=== PATIENT | female | born 1985 | race Caucasian/White ===

== ENCOUNTER 2017-11-07 11:03 | Inpatient (IN) | payer SELFPAY ==
[2017-11-07] MEDS: LACTATED RINGER'S 1,000 ML IV ×3 (11:43→23:44)
[2017-11-07] MEDS: BETAMET NA PHOS/AC(6 MG/ML) 5ML INJ IM (11:47)
[2017-11-07] MEDS: TERBUTALINE 1 MG/ML INJ SC ×2 (11:47→19:52)
[2017-11-07 12:04] LABS: ADD MAN DIFF? NO
[2017-11-07 12:05] LABS: WHITE BLOOD COUNT 7.8 10^3/ul (4.8-10.8)
[2017-11-07 12:05] LABS: BASOPHILS % 0.4 % (0.0-2.0); EOSINOPHILS # 0.1 10^3/ul (0.0-0.5); EOSINOPHILS % 1.2 % (0.0-7.0); HEMATOCRIT 33.5 % (37.0-47.0); HEMOGLOBIN 11.5 g/dl (12.0-16.0); LYMPHOCYTES # 1.1 10^3/ul (0.8-2.9); LYMPHOCYTES % 14.4 % (15.0-51.0); MEAN CORPUSCULAR HEMOGLOBIN 32.8 pg (29.0-33.0); MEAN CORPUSCULAR HGB CONC 34.3 g/dl (32.0-37.0); MEAN CORPUSCULAR VOLUME 95.4 fl (82.0-101.0); MEAN PLATELET VOLUME 9.1 fl (7.4-10.4); MONOCYTE # 0.7 10^3/ul (0.3-0.9); MONOCYTES % 8.9 % (0.0-11.0); NEUTROPHIL # 5.8 10^3/ul (1.6-7.5); NEUTROPHILS % 73.8 % (39.0-77.0); PLATELET COUNT 227 10^3/UL (140-415); RED BLOOD COUNT 3.51 10^6/ul (4.20-5.40); RED CELL DISTRIBUTION WIDTH 13.2 % (11.5-14.5)
[2017-11-07 12:13] LABS: ADD UMIC YES; UR ASCORBIC ACID NEGATIVE (NEGATIVE); UR BACTERIA FEW /HPF (NONE SEEN); UR BILIRUBIN (Dip) NEGATIVE (NEGATIVE); UR BLOOD (Dip) 3+ mg/dL (NEGATIVE); UR CLARITY CLEAR (CLEAR); UR COLOR YELLOW (YELLOW); UR GLUCOSE (Dip) NEGATIVE (NEGATIVE); UR KETONES (Dip) NEGATIVE (NEGATIVE); UR LEUKOCYTE ESTERASE (Dip) NEGATIVE Leu/ul (NEGATIVE); UR NITRITE (Dip) NEGATIVE (NEGATIVE); UR RBC 1 /HPF (0-5); UR SPECIFIC GRAVITY (Dip) 1.009 (1.003-1.030); UR TOTAL PROTEIN (Dip) NEGATIVE (NEGATIVE); UR UROBILINOGEN (Dip) NEGATIVE (NEGATIVE); UR WBC 0 /HPF (0-5)
[2017-11-07] MEDS: MAGNESIUM SULFATE 4 GM/100 ML 100 ML IV (15:14)
[2017-11-07] MEDS: MAGNESIUM SULFATE 20 GM/500 ML 500 ML IV (15:58)
[2017-11-07 18:50] LABS: MAGNESIUM 4.4 mg/dl (1.7-2.5)
[2017-11-08] MEDS: MAGNESIUM SULFATE 20 GM/500 ML 500 ML IV ×3 (01:50→19:00)
[2017-11-08 07:44] LABS: MAGNESIUM 5.6 mg/dl (1.7-2.5)
[2017-11-08] MEDS: BETAMET NA PHOS/AC(6 MG/ML) 5ML INJ IM (12:23)
[2017-11-08] MEDS: LACTATED RINGER'S 1,000 ML IV ×2 (13:21→22:26)
[2017-11-08 13:31] LABS: MAGNESIUM 4.4 mg/dl (1.7-2.5)
[2017-11-09 01:52] LABS: MAGNESIUM 4.3 mg/dl (1.7-2.5)
[2017-11-09] MEDS: LACTATED RINGER'S 1,000 ML IV (02:28)
[2017-11-09] MEDS: MAGNESIUM SULFATE 20 GM/500 ML 500 ML IV (02:32)
[2017-11-09] MEDS: BETAMET NA PHOS/AC(6 MG/ML) 5ML INJ IM (07:36)
[2017-11-09 08:40] LABS: MAGNESIUM 5.3 mg/dl (1.7-2.5)
[2017-11-10] MEDS: DOCUSATE SODIUM 100 MG CAP PO (09:13)
[2017-11-10] MEDS: TERBUTALINE 1 MG/ML INJ SC (16:23)
== END 2017-11-10 22:52 | disposition home or self-care (01) | DRG 778 ==
LOC: OBT 11:03 → L-D 11:03 → OBT 14:34 → L-D 14:25 → PP1 15:06
DX: O60.03 Preterm labor without delivery, third trimester (principal); Z3A.35 35 weeks gestation of pregnancy
CPT/HCPCS: 36415; 76815; 76818; 81001; 83735; 85025

== ENCOUNTER 2017-11-22 14:02 | Inpatient (IN) | payer SELFPAY ==
[2017-11-22 15:12] LABS: RUPTURE FETAL MEMBRANES POSITIVE (NEGATIVE)
[2017-11-22] MEDS ORDERED: BUTORPHANOL 2 MG INJ IV ×2 (16:00)
[2017-11-22] MEDS ORDERED: HYDROCODONE/APAP (5/325) TAB PO (16:00)
[2017-11-22] MEDS ORDERED: OXYCODONE/ASPIRIN (4.88/325) TAB PO (16:00)
[2017-11-22] MEDS ORDERED: OXYCODONE/ACETAMINOPHEN (5/325) TAB PO (16:00)
[2017-11-22] MEDS ORDERED: METHYLERGONOVINE 0.2 MG INJ IM (16:00)
[2017-11-22] MEDS ORDERED: LIDOCAINE 1% (MPF) 30 ML INJ INJ (16:00)
[2017-11-22] MEDS ORDERED: CARBOPROST 250 MCG INJ IM (16:00)
[2017-11-22] MEDS ORDERED: OXYTOCIN 30 UNITS/LR 500 ML IV ×2 (16:00)
[2017-11-22] MEDS ORDERED: MISOPROSTOL 200 MCG TAB PR (16:00)
[2017-11-22] MEDS ORDERED: CEFAZOLIN 2 GM/50 ML (PMX) 50 ML IV (16:30)
[2017-11-22] MEDS: AMPICILLIN 2 GM/NS (PMX) 100 ML IV (16:47)
[2017-11-22] MEDS: LACTATED RINGER'S 1,000 ML IV ×2 (16:47→19:06)
[2017-11-22 16:59] LABS: ADD MAN DIFF? NO
[2017-11-22 17:07] LABS: BASOPHILS % 0.3 % (0.0-2.0); EOSINOPHILS # 0.1 10^3/ul (0.0-0.5); EOSINOPHILS % 1.1 % (0.0-7.0); HEMATOCRIT 33.3 % (37.0-47.0); HEMOGLOBIN 11.5 g/dl (12.0-16.0); LYMPHOCYTES # 1.4 10^3/ul (0.8-2.9); LYMPHOCYTES % 15.8 % (15.0-51.0); MEAN CORPUSCULAR HEMOGLOBIN 32.7 pg (29.0-33.0); MEAN CORPUSCULAR HGB CONC 34.5 g/dl (32.0-37.0); MEAN CORPUSCULAR VOLUME 94.6 fl (82.0-101.0); MEAN PLATELET VOLUME 9.3 fl (7.4-10.4); MONOCYTE # 0.7 10^3/ul (0.3-0.9); MONOCYTES % 8.3 % (0.0-11.0); NEUTROPHIL # 6.6 10^3/ul (1.6-7.5); NEUTROPHILS % 73.4 % (39.0-77.0); PLATELET COUNT 229 10^3/UL (140-415); RED BLOOD COUNT 3.52 10^6/ul (4.20-5.40)
[2017-11-22 17:22] LABS: INR 0.93; PROTIME 12.6 Sec (11.9-14.9)
[2017-11-22 17:23] LABS: PARTIAL THROMBOPLASTIN TIME 24.3 Sec (25.0-35.0)
[2017-11-22 17:51] LABS: HEPATITIS B SURFACE ANTIGEN NEGATIVE (NEGATIVE)
[2017-11-22] MEDS ORDERED: ONDANSETRON 4 MG INJ IV (18:30)
[2017-11-22] MEDS ORDERED: NALOXONE (0.4 MG/ML) INJ IV (18:30)
[2017-11-22] MEDS ORDERED: DIPHENHYDRAMINE 50 MG INJ IV (18:30)
[2017-11-22] MEDS: AMPICILLIN 1 GM/NS (PMX) 50 ML IV (21:11)
[2017-11-23] MEDS: AMPICILLIN 1 GM/NS (PMX) 50 ML IV ×4 (01:09→12:00)
[2017-11-23] MEDS: LACTATED RINGER'S 1,000 ML IV (02:32)
[2017-11-23] MEDS: FENTAnyl 2MCG/ML-ROPIV 0.2% 100 ML BAG EPI ×2 (02:34→10:04)
[2017-11-23] MEDS: INFLUENZA VIRUS VACCINE 0.5 ML (DISPENSING) IM* (09:00)
[2017-11-23] MEDS: OXYTOCIN 30 UNITS/LR 500 ML IV ×2 (12:36→12:40)
[2017-11-23] MEDS: IBUPROFEN 600 MG TAB PO ×2 (14:17→17:33)
[2017-11-23 14:30] LABS: AMPHETAMINE/METHAMPHETAMINE Negative (NEGATIVE); BARBITURATES Negative (NEGATIVE); BENZODIAZEPINES Negative (NEGATIVE); CANNABINOIDS Negative (NEGATIVE); COCAINE Negative (NEGATIVE); OPIATES Negative (NEGATIVE)
[2017-11-23] MEDS ORDERED: HYDROCODONE/APAP (5/325) TAB PO ×2 (15:30)
[2017-11-23] MEDS ORDERED: OXYTOCIN 30 UNITS/LR 500 ML IV (15:30)
[2017-11-23] MEDS ORDERED: ZOLPIDEM 5 MG TAB PO (15:30)
[2017-11-23] MEDS ORDERED: METHYLERGONOVINE 0.2 MG INJ IM (15:30)
[2017-11-23] MEDS ORDERED: DIBUCAINE 1% 30 GM OINT PR (15:30)
[2017-11-23] MEDS ORDERED: CARBOPROST 250 MCG INJ IM (15:30)
[2017-11-23] MEDS ORDERED: MISOPROSTOL 200 MCG TAB PR (15:30)
[2017-11-23] MEDS: CEPHALEXIN 500 MG CAP PO (17:33)
[2017-11-23] MEDS: BENZOCAINE 20% 56 ML SPRAY TOP (17:34)
[2017-11-23] MEDS: LANOLIN 7 GM TUBE TOP (17:34)
[2017-11-23] MEDS: WITCH HAZEL/GLYCERIN PAD PR (17:35)
[2017-11-23] MEDS: LACTATED RINGER'S 1,000 ML IV* ×2 (17:39→23:25)
[2017-11-23] MEDS: SENNA/DOCUSATE NA (8.6MG/50MG) TAB PO (21:38)
[2017-11-23] MEDS: MAGNESIUM HYDROXIDE 30ML CUP PO (21:38)
[2017-11-23 22:01] LABS: RAPID PLASMA REAGIN NONREACTIVE (NR)
[2017-11-24] MEDS: CEPHALEXIN 500 MG CAP PO ×5 (00:14→23:42)
[2017-11-24] MEDS: IBUPROFEN 600 MG TAB PO ×5 (00:15→23:42)
[2017-11-24] MEDS: LACTATED RINGER'S 1,000 ML IV* (07:25)
[2017-11-24] MEDS: SENNA/DOCUSATE NA (8.6MG/50MG) TAB PO ×2 (08:49→21:11)
[2017-11-24] MEDS: MAGNESIUM HYDROXIDE 30ML CUP PO ×2 (08:49→21:11)
[2017-11-24 09:13] LABS: ADD MAN DIFF? NO
[2017-11-24 09:15] LABS: BASOPHILS % 0.4 % (0.0-2.0); EOSINOPHILS # 0.1 10^3/ul (0.0-0.5); EOSINOPHILS % 1.2 % (0.0-7.0); HEMATOCRIT 27.2 % (37.0-47.0); HEMOGLOBIN 9.2 g/dl (12.0-16.0); LYMPHOCYTES # 1.6 10^3/ul (0.8-2.9); LYMPHOCYTES % 14.1 % (15.0-51.0); MEAN CORPUSCULAR HEMOGLOBIN 32.6 pg (29.0-33.0); MEAN CORPUSCULAR HGB CONC 33.8 g/dl (32.0-37.0); MEAN CORPUSCULAR VOLUME 96.5 fl (82.0-101.0); MEAN PLATELET VOLUME 9.4 fl (7.4-10.4); MONOCYTE # 1.2 10^3/ul (0.3-0.9); MONOCYTES % 10.7 % (0.0-11.0); NEUTROPHIL # 8.1 10^3/ul (1.6-7.5); PLATELET COUNT 175 10^3/UL (140-415); RED BLOOD COUNT 2.82 10^6/ul (4.20-5.40); RED CELL DISTRIBUTION WIDTH 13.3 % (11.5-14.5)
[2017-11-24 09:15] LABS: WHITE BLOOD COUNT 11.1 10^3/ul (4.8-10.8)
[2017-11-25] MEDS: CEPHALEXIN 500 MG CAP PO ×2 (05:57→11:56)
[2017-11-25] MEDS: IBUPROFEN 600 MG TAB PO ×2 (05:57→11:56)
[2017-11-25] MEDS: MEASLES,MUMPS,RUBELLA VACCINE INJ SC* (09:00)
[2017-11-25] MEDS: DIPHTH/TET/ACEL PERTUSS (ADULT) 0.5 ML VIAL IM* (09:00)
[2017-11-25] MEDS: VARICELLA VACCINE LIVE/PF 1,350 UNIT/0.5 ML ML SC* (09:00)
[2017-11-25] MEDS: SENNA/DOCUSATE NA (8.6MG/50MG) TAB PO (09:56)
[2017-11-25] MEDS: MAGNESIUM HYDROXIDE 30ML CUP PO (09:56)
== END 2017-11-25 16:21 | disposition home or self-care (01) | DRG 775 ==
LOC: OBT 14:02 → L-D 11-23 10:10 → PP1 11-23 15:23 → OBT 15:45 → L-D 15:59
PROVIDERS: Obstetrics & Gynecology
PROC: 10E0XZZ Delivery of Products of Conception, External Approach (ICD-10-PCS; principal; 2017-11-23)
PROC: 0HQ9XZZ Repair Perineum Skin, External Approach (ICD-10-PCS; 2017-11-23)
DX: O34.219 Maternal care for unspecified type scar from previous cesarean delivery (principal); O99.824 Streptococcus B carrier state complicating childbirth; O70.0 First degree perineal laceration during delivery; Z3A.37 37 weeks gestation of pregnancy; Z37.0 Single live birth
CPT/HCPCS: 62319; 80307; 84112; 85025; 85384; 85610; 85730; 86592; 86850; 86900; 86901; 87340; 90686; 90715; 90716